=== PATIENT | female | born 1990 | race Hispanic/Latino ===

== ENCOUNTER 2018-06-05 10:03 | Inpatient (IN) | payer OTHER ==
[2018-06-05] MEDS ORDERED: Misoprostol 200 MCG TAB PR PRN (10:40)
[2018-06-05] MEDS ORDERED: Promethazine HCl 25 MG/ML VIAL IM PRN ×2 (10:40→17:36)
[2018-06-05] MEDS ORDERED: Ondansetron PF 4 MG/2 ML Vial IVP PRN ×3 (10:40→23:20)
[2018-06-05] MEDS ORDERED: NS w/ Oxytocin 10 units 500 ML IV SCH (10:40)
[2018-06-05] MEDS ORDERED: Diphenoxylate HCl/Atropine Tablet PO PRN ×2 (10:40)
[2018-06-05] MEDS ORDERED: Ibuprofen 800 MG TAB PO PRN (10:40)
[2018-06-05] MEDS ORDERED: Lidocaine 1% (PF) 30 ML VIAL SC PRN (10:40)
[2018-06-05] MEDS ORDERED: HYDROcodone/Acetaminophen 5/325 mg Tablet PO PRN ×2 (10:40)
[2018-06-05] MEDS ORDERED: Acetaminophen 500 MG TAB PO PRN (10:40)
[2018-06-05] MEDS ORDERED: NS / Oxytocin 40 units/1000ml 1,000 ML IV PRN (10:40)
[2018-06-05] MEDS ORDERED: Docusate 100 MG CAP PO PRN (10:40)
[2018-06-05] MEDS ORDERED: Butorphanol Tartrate 1 MG/ML VIAL SLOW IVP PRN (10:40)
[2018-06-05] MEDS: Lactated Ringer's 1,000 ML IV SCH ×3 (10:53→17:39)
[2018-06-05 11:07] VITALS: BMI 32.8
[2018-06-05] MEDS ORDERED: Bupivacaine 0.25% HCL 30 ML VIAL ONE (11:11)
[2018-06-05 11:28] LABS: Hemoglobin 11.7 g/dL (12.0-16.0); Mean Corpuscular HGB CONC 34.9 g/dL (32.0-36.0); Mean Corpuscular Hemoglobin 30.4 pg (27.0-31.0); Mean Platelet Volume 8.7 fL (7.4-10.4); Platelet Count 216 thou/uL (130-400); RBC Distribution Width 14.1 % (11.5-14.5); Red Blood Cell (RBC) Count 3.85 mill/uL (4.20-5.40); White Blood Cell (WBC) Count 7.6 thou/uL (4.8-10.8)
[2018-06-05 12:08] LABS: HBSAg Index 0.27 S/CO (0-0.99); Hep B Surf Ag Non-Reactive S/CO (NonReactive); Syphilis Antibody Nonreactive (Nonreactive); Syphilis Antibody Index 0.02 S/CO (<1.00 Non-Reactive)
[2018-06-05] MEDS ORDERED: Fentanyl 4 mcg/Bup 0.1% Cadd 100 ML ONE (16:44)
[2018-06-05] MEDS ORDERED: Lidocaine 1.5%/Epinephrine 1:200,000 5 ML AMPUL IJ ONE (16:45)
[2018-06-05] MEDS ORDERED: Naloxone HCl 0.4 mg/ml Vial IVP PRN ×2 (17:36)
[2018-06-05] MEDS ORDERED: Lactated Ringer's 500 ML IV PRN (17:36)
[2018-06-05] MEDS ORDERED: Eucerin (Mineral Oil/Petrolatum,White) 30 gm Jar TOP PRN (17:36)
[2018-06-05] MEDS ORDERED: ePHEDrine/0.9% NaCl/PF SYRINGE 50 mg/10 ml SLOW IVP PRN (17:36)
[2018-06-05] MEDS ORDERED: Acetaminophen 325 MG TAB PO PRN (17:36)
[2018-06-05] MEDS ORDERED: diphenhydrAMINE 50 MG/ML VIAL IVP PRN (17:36)
[2018-06-05] MEDS ORDERED: Fentanyl 4 mcg/Bupivacaine 0.1% Cassette 100 ML EPIDURAL SCH (17:45)
[2018-06-05] MEDS ORDERED: Communication Order-Pharmacy FS SCH (17:45)
[2018-06-05] MEDS ORDERED: Lidocaine 1% (PF) 30 ML VIAL ONE (20:32)
[2018-06-05] MEDS ORDERED: Lanolin Ointment 7 GM TUBE TOP PRN (23:20)
[2018-06-05] MEDS ORDERED: Preparation H Ointment 28 GM TUBE PR PRN (23:20)
[2018-06-05] MEDS ORDERED: Acetaminophen/Codeine 30-300mg Tablet PO PRN ×2 (23:20)
[2018-06-05] MEDS ORDERED: Benzocaine-Menthol 82.5 ML CAN TOP PRN (23:20)
[2018-06-05] MEDS ORDERED: diphenhydrAMINE 25 MG CAP PO PRN (23:20)
[2018-06-05] MEDS ORDERED: Misoprostol 200 MCG TAB VAG PRN (23:20)
[2018-06-05] MEDS ORDERED: Bisacodyl 10 MG SUPP PR PRN (23:20)
[2018-06-05] MEDS ORDERED: Milk Of Magnesia 30 ML UDCUP PO PRN (23:20)
[2018-06-05] MEDS ORDERED: Zolpidem Tartrate 5 MG TAB PO PRN (23:20)
[2018-06-05] MEDS ORDERED: NS / Oxytocin 40 units/1000ml 1,000 ML IV SCH (23:30)
[2018-06-06] MEDS: Ibuprofen 800 MG TAB PO SCH ×2 (05:22→14:02)
[2018-06-06 07:55] LABS: Hemoglobin 11.1 g/dL (12.0-16.0); Mean Corpuscular HGB CONC 34.2 g/dL (32.0-36.0); Mean Corpuscular Hemoglobin 30.7 pg (27.0-31.0); Mean Corpuscular Volume 89.7 fL (78.0-98.0); Mean Platelet Volume 8.4 fL (7.4-10.4); Platelet Count 190 thou/uL (130-400); RBC Distribution Width 14.3 % (11.5-14.5); Red Blood Cell (RBC) Count 3.61 mill/uL (4.20-5.40); White Blood Cell (WBC) Count 14.2 thou/uL (4.8-10.8)
[2018-06-06] MEDS: Ferrous Sulfate 325 MG TAB PO SCH ×2 (08:52→18:25)
[2018-06-06] MEDS ORDERED: Adacel (T-DAP) 0.5 ML SYRINGE IM ONE (09:00)
[2018-06-06] MEDS: Prenatal Vitamin 1 TAB PO SCH (09:54)
[2018-06-06] MEDS: Docusate Calcium (SURFAK) 240 MG CAP PO SCH (09:54)
[2018-06-07] MEDS: Docusate Calcium (SURFAK) 240 MG CAP PO SCH ×2 (01:24→09:12)
[2018-06-07] MEDS: Ibuprofen 800 MG TAB PO SCH ×2 (01:25→06:12)
[2018-06-07] MEDS: Ferrous Sulfate 325 MG TAB PO SCH (07:38)
[2018-06-07 08:25] VITALS: BP 110/74; TEMP 97.6
[2018-06-07] MEDS: Prenatal Vitamin 1 TAB PO SCH (09:12)
== END 2018-06-07 11:43 | disposition home or self-care (01) | DRG 807 ==
LOC: L&D 10:27 → 3SW 06-06 01:59
PROVIDERS: ADMIT Obstetrics & Gynecology; ATTEND Obstetrics & Gynecology
PROC: 10E0XZZ Delivery of Products of Conception, External Approach (ICD-10-PCS; principal; 2018-06-05)
PROC: 10907ZC Drainage of Amniotic Fluid, Therapeutic from Products of Conception, Via Natural or Artificial Opening (ICD-10-PCS; 2018-06-05)
PROC: 3E033VJ Introduction of Other Hormone into Peripheral Vein, Percutaneous Approach (ICD-10-PCS; 2018-06-05)
DX: O80 Encounter for full-term uncomplicated delivery (principal); Z37.0 Single live birth; Z3A.39 39 weeks gestation of pregnancy
CPT/HCPCS: 36415; 51702; 85027; 86780; 86850; 86900; 86901; 87340; 90715; J2001; J3490; S0020